=== PATIENT | male | born 1995 | race Caucasian/White ===

== ENCOUNTER 2018-11-25 09:40 | Emergency (ER) | payer OTHER ==
[~2018-11-25] VITALS: Ht 193 cm; Wt 136.1 kg
[2018-12-07] MEDS ORDERED: VIBRAMYCIN100 MG PO (10:27)
[2018-12-07] MEDS ORDERED: TYLENOL325 M1 PO (10:32)
[2018-12-07] MEDS ORDERED: Motrin,Rufen400 MG PO (10:32)
== END 2018-11-25 11:20 | disposition home or self-care (01) ==
LOC: ED 09:40
DX: N45.1 Epididymitis (principal); Z91.040 Latex allergy status

== ENCOUNTER → 2018-12-02 | Outpatient (CLI) | payer OTHER ==
[~2018-12-02] MED LIST: Motrin,Rufen400 MG PO; TYLENOL325 M1 PO; VIBRAMYCIN100 MG PO
== END | disposition home or self-care (01) ==
LOC: CT 16:00
DX: K76.0 Fatty (change of) liver, not elsewhere classified (principal); K57.90 Diverticulosis of intestine, part unspecified, without perforation or abscess without bleeding; R31.9 Hematuria, unspecified; N50.89 Other specified disorders of the male genital organs; R39.15 Urgency of urination

== ENCOUNTER → 2018-12-24 | Outpatient (CLI) | payer OTHER | END | disposition home or self-care (01) | LOC: US 13:54 | DX: N50.9 Disorder of male genital organs, unspecified (principal) ==